=== PATIENT | female | born 1960 | race Caucasian/White ===

== ENCOUNTER 2023-04-03 12:48 | Inpatient (IN) | payer OTHER ==
[~2023-04-03 12:48] MED LIST: Heparin 10,000 UNITS/ 10 ML VIAL ONE
[2023-04-03 13:32] LABS: #Neutrophils 16.3 thou/uL (1.40-6.50); %Basophils 0.1 % (0.0-1.0); %Eosinophils 0.1 % (0.0-10.0); %Lymphocytes 5.7 % (21.0-51.0); %Monocytes 5.3 % (0.0-10.0); %Neutrophils 87.6 % (42.0-75.0); Hematocrit 31.5 % (36.0-47.0); Hemoglobin 8.1 g/dL (12.0-16.0); Mean Corpuscular HGB CONC 25.7 g/dL (32.0-36.0); Mean Corpuscular Volume 93.2 fl (78.0-98.0); Mean Platelet Volume 10.6 fL (7.4-10.4); Platelet Count 322 10x3/uL (130-400); RBC Distribution Width 22.8 % (11.5-14.5); Red Blood Cell (RBC) Count 3.38 mill/uL (4.20-5.40); White Blood Cell (WBC) Count 18.6 10x3/uL (4.8-10.8)
[2023-04-03 13:54] LABS: ALT (SGPT) 26 U/L (8-55); AST (SGOT) 31 U/L (5-34); Albumin 2.9 g/dL (3.5-5.0); Alkaline Phosphatase 226 U/L (40-110); BUN (Urea Nitrogen) 94 mg/dL (9.8-20.1); Bilirubin, Total 0.4 mg/dL (0.2-1.2); CK (CPK) 80 U/L (29-168); Calc. Creatinine Clearance 0 mL/min (70-130); Calcium 8.5 mg/dL (7.8-10.44); Chloride 94 mmol/L (98-107); Estimated GFR 8; Globulin 3.5 g/dL (2.4-3.5); Glucose 106 mg/dL (70-105); Protein, Total 6.4 g/dL (6.0-8.3); Sodium 131 mmol/L (136-145)
[2023-04-03 13:58] LABS: Anisocytosis MODERATE=16-30 cells HPF (0-5); Burr Cells MODERATE= 6-15 cells HPF (0-1); CellaVision Operator ID LAB.MJL; Hypochromia SLIGHT = 6-15 cells HPF (0-5); Ovalocytes SLIGHT = 2-5 cells HPF (0-1); Platelet Adequacy Comment Platelets Normal; Poikilocytosis SLIGHT = 6-15 cells HPF (0-5); Polychromasia MODERATE = 3-4 cells HPF (0-2); Troponin I 0.023 ng/mL (< 0.028)
[2023-04-03 14:02] LABS: Carbon Dioxide Less than 8 mmol/L (22-29)
[2023-04-03] MEDS ORDERED: Calcium Chloride 1 GM/10 ML Abboject SYRINGE ONE (14:09)
[2023-04-03] MEDS ORDERED: Sodium Bicarb 50 MEQ/50 ML VIAL ONE ×4 (14:09→18:22)
[2023-04-03] MEDS ORDERED: CALCIUM GLUC 1 GM/NS 50 ML BAG ONE (14:10)
[2023-04-03] MEDS ORDERED: Insulin Regular 300 UNITS/3 ML VIAL ONE (14:10)
[2023-04-03] MEDS ORDERED: Dextrose 50% Abboject 50 ML SYRINGE ONE (14:13)
[2023-04-03] MEDS ORDERED: Rocuronium Bromide 10 MG/ML (10ML VIAL) ONE ×3 (14:20→14:23)
[2023-04-03] MEDS ORDERED: EPINEPHrine 1 MG/10 ML Abboject SYRINGE ONE ×2 (14:24→14:25)
[2023-04-03] MEDS ORDERED: NOREPINEPHRINE 8 MG/250 ML-D5W 250 ML ONE (14:24)
[2023-04-03] MEDS ORDERED: Fentanyl CADD 100 ML IV SCH (14:30)
[2023-04-03 14:49] LABS: Analyzer IN Cardio ER; CO2 Tension 37.1 mmHg (35.0-45.0); Calcium, Ionized (arterial) 1.05 mmol/L (1.12-1.30); Carboxyhemoglobin (COHb) 0.3 gm% (0.0-3.0); Hematocrit-ABG 27 % (36.0-47.0); Hemoglobin (Hb) 9.3 g/dL (12.0-16.0); O2 Tension (PaO2), arterial 152.1 mmHg (> 80.0)
[2023-04-03 14:50] LABS: ALV-art Gradient 371.925 mmHg (0-20); Actual Bicarbonate (HCO3a) 6.8 mEq/L (22-28); Potassium - ABG Lab 6.44 mmol/L (3.70-5.30); Puncture Site LRA; pH, Arterial 6.884 (7.35-7.45)
[2023-04-03 14:55] LABS: Bilirubin Negative (Negative); Blood, Urine 1+ (Negative); CAUTI Indications for Culture Alt mental st,lethar; Clarity Extra Turbid (Clear); Glucose, Urine (Dipstick) 200 mg/dL (Negative); Ketone, Urine Negative (Negative); Leukocyte 75 Leu/uL (Negative); Nitrite Negative (Negative); Protein, Urine (Dipstick) 300 mg/dL (Neg-Trace); Squamous Epithelial Greater than 50 HPF (0-3); Urobilinogen Normal mg/dL (Less than 2)
[2023-04-03 15:04] LABS: Bacteria/HPF 2+ HPF (None Seen); WBC/HPF 0-3 HPF (0-3)
[2023-04-03 15:05] LABS: Urine Culture Reflex No No
[2023-04-03 15:15] LABS: Actual Bicarbonate (HCO3a) 7.2 mEq/L (22-28); Analyzer IN Cardio ER; Base Excess (BEa) -24.1 mEq/L (-2.0 to +3.0); CO2 Tension 35.4 mmHg (35.0-45.0); Calcium, Ionized (arterial) 1.11 mmol/L (1.12-1.30); Carboxyhemoglobin (COHb) 0.3 gm% (0.0-3.0); Hematocrit-ABG 28 % (36.0-47.0); Hemoglobin (Hb) 9.4 g/dL (12.0-16.0); O2 Tension (PaO2), arterial 88.1 mmHg (> 80.0); Potassium - ABG Lab 5.98 mmol/L (3.70-5.30); Puncture Site LRA; pH, Arterial 6.924 (7.35-7.45)
[2023-04-03] MEDS ORDERED: Albumin 25% 25 GM/100 ML BOT IVPB SCH ×2 (16:30→20:45)
[2023-04-03 16:43] LABS: HBSAB Concentration Less than 8.00 mIU/mL; HBSAg Index 0.27 S/CO (0-0.99); Hep B Core Total Ab Non-Reactive (NonReactive); Hep B Core Total Index 0.18 S/CO (0-0.79); Hep B Surf AB Non-Reactive (NonReactive); Hep B Surf Ag Non-Reactive S/CO (NonReactive); Hep C IgG Ab Non-Reactive S/CO (NonReactive); Hep C Index 0.22 S/CO (0-0.79)
[2023-04-03] MEDS ORDERED: Dextrose 50% Abboject 50 ML SYRINGE SLOW IVP PRN (16:54)
[2023-04-03] MEDS ORDERED: Glucagon 1 MG/ML KIT IM PRN (16:54)
[2023-04-03] MEDS ORDERED: Dextrose 5% in Water 1,000 ML IV PRN (16:54)
[2023-04-03 17:42] LABS: Hematocrit 30.3 % (36.0-47.0); Hemoglobin 7.9 g/dL (12.0-16.0)
[2023-04-03] MEDS ORDERED: Albumin 25% 25 GM/100 ML BOT IVPB PRN (17:44)
[2023-04-03] MEDS ORDERED: Sodium Bicarbonate 150 MEQ in Dextrose 5% in Water 1,000 ML IV SCH (18:00)
[2023-04-03 18:06] LABS: BUN (Urea Nitrogen) 90 mg/dL (9.8-20.1); Calc. Creatinine Clearance 0 mL/min (70-130); Calcium 8.3 mg/dL (7.8-10.44); Chloride 95 mmol/L (98-107); Estimated GFR 8; Glucose 135 mg/dL (70-105); Sodium 130 mmol/L (136-145)
[2023-04-03 18:19] LABS: Calcium, Ionized (venous) 1.06 mmol/L (1.16-1.32); Chloride (VBG) 94 mmol/L (98-106); Hematocrit-VBG 27 % (36.0-47.0); Hemoglobin (Hb) 9.1 g/dL (11.7-16.0); Sodium 131.5 mmol/L (133-146)
[2023-04-03 18:19] LABS: Carbon Dioxide Less than 8 mmol/L (22-29); Potassium 6.3 mmol/L (3.5-5.1)
[2023-04-03] MEDS ORDERED: Sodium Bicarb 50 MEQ/50 ML Abboject 8.4% SYRINGE IVP SCH (18:20)
[2023-04-03 18:23] LABS: HBSAB Concentration Less than 8.00 mIU/mL; HBSAg Index 0.22 S/CO (0-0.99); Hep B Core Total Ab Non-Reactive (NonReactive); Hep B Core Total Index 0.09 S/CO (0-0.79); Hep B Surf AB Non-Reactive (NonReactive); Hep B Surf Ag Non-Reactive S/CO (NonReactive); Hep C IgG Ab Non-Reactive S/CO (NonReactive); Hep C Index 0.19 S/CO (0-0.79)
[2023-04-03 18:27] LABS: Actual Bicarbonate (HCO3v) 9.9 mEq/L (22-28); Potassium (VBG) 6.16 mmol/L (3.70-5.30); pH (venous) 7.069 (7.32-7.43)
[2023-04-03] MEDS ORDERED: LOKELMA 10 GM PACKET PO SCH (18:45)
[2023-04-03] MEDS ORDERED: NOREPINEPHRINE 8 MG/250 ML-D5W 250 ML IVPB SCH (18:45)
[2023-04-03 18:50] LABS: Lactic Acid 12.1 mmol/L (0.5-2.2)
[2023-04-03] MEDS ORDERED: VANCOMYCIN 1.25 GM/250 ML BAG 1.25 GM in Premix Bag 1 BAG IVPB SCH (19:00)
[2023-04-03] MEDS ORDERED: Vancomycin Dialysis Sliding Scale (Wt > 99) FS SCH (19:00)
[2023-04-03] MEDS ORDERED: Sodium Bicarb 50 MEQ/50 ML VIAL IVP SCH (19:30)
[2023-04-03 20:16] LABS: Anion Gap 34 mmol/L (10-20); BUN (Urea Nitrogen) 99 mg/dL (9.8-20.1); Calc. Creatinine Clearance 21 mL/min (70-130); Calcium 8.4 mg/dL (7.8-10.44); Carbon Dioxide 13 mmol/L (22-29); Chloride 93 mmol/L (98-107); Estimated GFR 8; Glucose 172 mg/dL (70-105); Magnesium 2.1 mg/dL (1.6-2.6); Sodium 134 mmol/L (136-145)
[2023-04-03] MEDS: Cefepime 1 GM in Sodium Chloride 0.9% 100 ML IVPB SCH (20:42)
[2023-04-03] MEDS: Heparin 5,000 UNITS/ML VIAL SC SCH (20:51)
[2023-04-03 21:05] LABS: Potassium 6.2 mmol/L (3.5-5.1)
[2023-04-03 21:22] LABS: Hematocrit 28.5 % (36.0-47.0); Hemoglobin 7.8 g/dL (12.0-16.0)
[2023-04-03] MEDS ORDERED: VANCOMYCIN 2 GRAM/500 ML BAG 2 GM in Premix Bag 1 BAG IVPB SCH (22:00)
[2023-04-03 23:18] LABS: Anion Gap 30 mmol/L (10-20); BUN (Urea Nitrogen) 66 mg/dL (9.8-20.1); Calc. Creatinine Clearance 29 mL/min (70-130); Calcium 9.4 mg/dL (7.8-10.44); Carbon Dioxide 16 mmol/L (22-29); Chloride 93 mmol/L (98-107); Estimated GFR 13; Glucose 164 mg/dL (70-105); Sodium 134 mmol/L (136-145)
[2023-04-03 23:35] LABS: Analyzer IN Cardio OR; Base Excess -8.8 mEq/L (-2.0 to +3.0); Calcium, Ionized (venous) 1.11 mmol/L (1.16-1.32); Chloride (VBG) 93 mmol/L (98-106); Hematocrit-VBG 26 % (36.0-47.0); Hemoglobin (Hb) 8.8 g/dL (11.7-16.0); Potassium (VBG) 4.68 mmol/L (3.70-5.30); Sodium 132.7 mmol/L (133-146)
[2023-04-04 00:07] LABS: Lactic Acid 8.7 mmol/L (0.5-2.2)
[2023-04-04] MEDS ORDERED: NOREPINEPHRINE 8 MG/250 ML-D5W 250 ML IVPB SCH (00:15)
[2023-04-04] MEDS: metroNIDAZOLE 500 MG in Premix Bag 1 BAG IVPB SCH ×4 (00:48→21:49)
[2023-04-04] MEDS: Norepinephrine 16 MG in Dextrose 5% in Water 234 ML IVPB PRN ×3 (00:50→23:27)
[2023-04-04 04:00] LABS: #Monocytes 3.1 thou/uL (0.11-0.59); #Neutrophils 17.3 thou/uL (1.40-6.50); %Basophils 0.1 % (0.0-1.0); %Lymphocytes 7.1 % (21.0-51.0); %Monocytes 13.8 % (0.0-10.0); %Neutrophils 78.2 % (42.0-75.0); Hemoglobin 7.4 g/dL (12.0-16.0); Mean Corpuscular HGB CONC 27.4 g/dL (32.0-36.0); Mean Corpuscular Hemoglobin 23.6 pg (27.0-31.0); Platelet Count 262 10x3/uL (130-400); RBC Distribution Width 23.1 % (11.5-14.5); Red Blood Cell (RBC) Count 3.14 mill/uL (4.20-5.40); White Blood Cell (WBC) Count 22.2 10x3/uL (4.8-10.8)
[2023-04-04] MEDS ORDERED: Hydrocortisone Sod Succ/PF 250 mg/2 ml Vial SLOW IVP SCH (04:00)
[2023-04-04] MEDS: Hydrocortisone Sod Succ/PF 100 mg/2 ml Vial IVP SCH ×4 (04:14→22:39)
[2023-04-04 04:22] LABS: Phosphorus 6.5 mg/dL (2.3-4.7)
[2023-04-04 04:23] LABS: Lactic Acid 8.7 mmol/L (0.5-2.2)
[2023-04-04 04:25] LABS: ALT (SGPT) 142 U/L (8-55); AST (SGOT) 286 U/L (5-34); Albumin 3.6 g/dL (3.5-5.0); Alkaline Phosphatase 158 U/L (40-110); Anion Gap 33 mmol/L (10-20); BUN (Urea Nitrogen) 62 mg/dL (9.8-20.1); Bilirubin, Total 0.6 mg/dL (0.2-1.2); Calc. Creatinine Clearance 29 mL/min (70-130); Calcium 8.8 mg/dL (7.8-10.44); Carbon Dioxide 12 mmol/L (22-29); Chloride 93 mmol/L (98-107); Estimated GFR 13; Globulin 2.7 g/dL (2.4-3.5); Glucose 173 mg/dL (70-105); Protein, Total 6.3 g/dL (6.0-8.3); Sodium 133 mmol/L (136-145)
[2023-04-04 04:30] LABS: Creatinine, Urine 24.89 mg/dL (47-110)
[2023-04-04] MEDS ORDERED: Sodium Bicarbonate 150 MEQ in Dextrose 5% in Water 1,000 ML IV SCH ×2 (05:00→16:15)
[2023-04-04 06:53] LABS: Base Excess (BEa) -10.5 mEq/L (-2.0 to +3.0); Calcium, Ionized (arterial) 1.05 mmol/L (1.12-1.30); Carboxyhemoglobin (COHb) 0.9 gm% (0.0-3.0); Hematocrit-ABG 25 % (36.0-47.0); Hemoglobin (Hb) 8.6 g/dL (12.0-16.0); O2 Tension (PaO2), arterial 78.7 mmHg (> 80.0); Potassium - ABG Lab 5.15 mmol/L (3.70-5.30); pH, Arterial 7.309 (7.35-7.45)
[2023-04-04 06:55] LABS: Actual Bicarbonate (HCO3a) 14.7 mEq/L (22-28); Puncture Site RRA
[2023-04-04] MEDS ORDERED: Ventilator Sedation Protocol 1 EACH FS SCH (08:45)
[2023-04-04] MEDS ORDERED: Pantoprazole 40 MG VIAL IVP SCH (09:00)
[2023-04-04] MEDS: Heparin 5,000 UNITS/ML VIAL SC SCH ×3 (09:13→21:49)
[2023-04-04] MEDS: HumaLOG 300 UNITS/3 ML VIAL SC PRN ×3 (09:14→22:10)
[2023-04-04 09:19] LABS: Anion Gap 32 mmol/L (10-20); BUN (Urea Nitrogen) 65 mg/dL (9.8-20.1); Calc. Creatinine Clearance 28 mL/min (70-130); Calcium 8.6 mg/dL (7.8-10.44); Carbon Dioxide 12 mmol/L (22-29); Chloride 92 mmol/L (98-107); Estimated GFR 12; Glucose 215 mg/dL (70-105); Potassium 5.2 mmol/L (3.5-5.1); Sodium 131 mmol/L (136-145)
[2023-04-04] MEDS: Vasopressin 20 UNITS in Sodium Chloride 0.9% 50 ML IV SCH ×2 (09:23→15:52)
[2023-04-04 09:28] LABS: Vancomycin, Random 30.6 ug/mL (See Comment)
[2023-04-04] MEDS ORDERED: Fentanyl CADD 100 ML IV SCH (09:45)
[2023-04-04] MEDS ORDERED: Propofol BOLUS 1,000 MG/100 ML VIAL IV PRN (09:45)
[2023-04-04] MEDS ORDERED: Propofol 1,000 MG/100 ML VIAL IV PRN (09:45)
[2023-04-04] MEDS: Albumin 25% 25 GM/100 ML BOT IVPB SCH (09:45)
[2023-04-04] MEDS ORDERED: Morphine 2 MG/ML VIAL SLOW IVP PRN (09:45)
[2023-04-04] MEDS ORDERED: Fentanyl BOLUS 250 ML IVPB PRN (09:45)
[2023-04-04] MEDS ORDERED: Lorazepam 2 MG/ML VIAL SLOW IVP PRN (09:45)
[2023-04-04] MEDS: Pantoprazole 40 MG VIAL IVP SCH ×2 (09:52→21:48)
[2023-04-04] MEDS ORDERED: Heparin 10,000 UNITS/ 10 ML VIAL ONE (11:54)
[2023-04-04] MEDS: Cefepime 1 GM in Sodium Chloride 0.9% 100 ML IVPB SCH (21:47)
[2023-04-05] MEDS: Vasopressin 20 UNITS in Sodium Chloride 0.9% 50 ML IV SCH ×2 (01:20→10:42)
[2023-04-05 04:15] LABS: #Monocytes 2.8 thou/uL (0.11-0.59); #Neutrophils 16.4 thou/uL (1.40-6.50); %Basophils 0.1 % (0.0-1.0); %Lymphocytes 6.8 % (21.0-51.0); %Monocytes 13.5 % (0.0-10.0); %Neutrophils 78.7 % (42.0-75.0); Hematocrit 25.3 % (36.0-47.0); Hemoglobin 7.4 g/dL (12.0-16.0); Mean Corpuscular HGB CONC 29.2 g/dL (32.0-36.0); Mean Corpuscular Hemoglobin 24.2 pg (27.0-31.0); Mean Corpuscular Volume 82.7 fl (78.0-98.0); Platelet Count 146 10x3/uL (130-400); RBC Distribution Width 23.5 % (11.5-14.5); Red Blood Cell (RBC) Count 3.06 mill/uL (4.20-5.40); White Blood Cell (WBC) Count 20.8 10x3/uL (4.8-10.8)
[2023-04-05] MEDS: Hydrocortisone Sod Succ/PF 100 mg/2 ml Vial IVP SCH ×4 (04:29→21:22)
[2023-04-05 04:42] LABS: ALT (SGPT) 199 U/L (8-55); AST (SGOT) 307 U/L (5-34); Albumin 3.6 g/dL (3.5-5.0); Alkaline Phosphatase 148 U/L (40-110); Anion Gap 34 mmol/L (10-20); BUN (Urea Nitrogen) 51 mg/dL (9.8-20.1); Bilirubin, Total 0.9 mg/dL (0.2-1.2); Calc. Creatinine Clearance 33 mL/min (70-130); Calcium 8.4 mg/dL (7.8-10.44); Carbon Dioxide 15 mmol/L (22-29); Chloride 90 mmol/L (98-107); Estimated GFR 15; Globulin 2.4 g/dL (2.4-3.5); Glucose 254 mg/dL (70-105); Potassium 4.3 mmol/L (3.5-5.1); Sodium 135 mmol/L (136-145)
[2023-04-05] MEDS: metroNIDAZOLE 500 MG in Premix Bag 1 BAG IVPB SCH ×3 (06:21→21:22)
[2023-04-05] MEDS: HumaLOG 300 UNITS/3 ML VIAL SC PRN ×2 (06:29→21:29)
[2023-04-05 07:24] LABS: Vancomycin, Random 18.7 ug/mL (See Comment)
[2023-04-05 08:01] LABS: Base Excess (BEa) -9.9 mEq/L (-2.0 to +3.0); CO2 Tension 25.3 mmHg (35.0-45.0); Calcium, Ionized (arterial) 1.02 mmol/L (1.12-1.30); Carboxyhemoglobin (COHb) 0.8 gm% (0.0-3.0); Hematocrit-ABG 25 % (36.0-47.0); Hemoglobin (Hb) 8.6 g/dL (12.0-16.0); O2 Tension (PaO2), arterial 92.9 mmHg (> 80.0); Potassium - ABG Lab 4.25 mmol/L (3.70-5.30); pH, Arterial 7.367 (7.35-7.45)
[2023-04-05 08:03] LABS: ALV-art Gradient 267.625 mmHg (0-20); Actual Bicarbonate (HCO3a) 14.2 mEq/L (22-28); Puncture Site RRA
[2023-04-05] MEDS ORDERED: Heparin 10,000 UNITS/ 10 ML VIAL ONE (09:29)
[2023-04-05] MEDS ORDERED: Insulin Glargine 30 UNITS/0.3 ML VIAL SC SCH (09:45)
[2023-04-05] MEDS: Pantoprazole 40 MG VIAL IVP SCH ×2 (10:29→20:12)
[2023-04-05] MEDS: Insulin Glargine 30 UNITS/0.3 ML VIAL SC SCH (10:35)
[2023-04-05] MEDS ORDERED: Albumin 25% 25 GM/100 ML BOT IVPB PRN (10:52)
[2023-04-05 11:01] LABS: Platelet Count 144 10x3/uL (130-400)
[2023-04-05 11:17] LABS: INR-International Normal Ratio 2.7; Prothrombin Time 30.2 sec (12.0-14.7)
[2023-04-05 11:18] LABS: PTT 38.6 sec (22.9-36.1)
[2023-04-05 11:23] LABS: Fibrinogen 151 mg/dL (253-463)
[2023-04-05 11:30] LABS: D-Dimer Test 8.53 *mcg/mL (0.27-0.43)
[2023-04-05] MEDS: Norepinephrine 16 MG in Dextrose 5% in Water 234 ML IVPB PRN (11:39)
[2023-04-05] MEDS: Heparin 5,000 UNITS/ML VIAL SC SCH (11:45)
[2023-04-05] MEDS: Albumin 25% 25 GM/100 ML BOT IVPB SCH (13:11)
[2023-04-05] MEDS ORDERED: Vancomycin 1 GM in Premix Bag 1 BAG IVPB SCH (17:00)
[2023-04-05] MEDS: Cefepime 1 GM in Sodium Chloride 0.9% 100 ML IVPB SCH (20:11)
[2023-04-06] MEDS: Hydrocortisone Sod Succ/PF 100 mg/2 ml Vial IVP SCH ×4 (04:55→21:46)
[2023-04-06] MEDS: metroNIDAZOLE 500 MG in Premix Bag 1 BAG IVPB SCH ×4 (06:05→21:14)
[2023-04-06 06:31] LABS: #Monocytes 2.3 thou/uL (0.11-0.59); #Neutrophils 14.4 thou/uL (1.40-6.50); %Basophils 0.1 % (0.0-1.0); %Eosinophils 0.1 % (0.0-10.0); %Lymphocytes 3.9 % (21.0-51.0); %Monocytes 12.9 % (0.0-10.0); %Neutrophils 81.7 % (42.0-75.0); Hematocrit 25.6 % (36.0-47.0); Hemoglobin 7.2 g/dL (12.0-16.0); Mean Corpuscular HGB CONC 28.1 g/dL (32.0-36.0); Mean Corpuscular Hemoglobin 24.3 pg (27.0-31.0); Mean Corpuscular Volume 86.5 fl (78.0-98.0); RBC Distribution Width 23.9 % (11.5-14.5); Red Blood Cell (RBC) Count 2.96 mill/uL (4.20-5.40); White Blood Cell (WBC) Count 17.6 10x3/uL (4.8-10.8)
[2023-04-06 06:33] LABS: Platelet Count 74 10x3/uL (130-400)
[2023-04-06 06:51] LABS: ALT (SGPT) 261 U/L (8-55); AST (SGOT) 333 U/L (5-34); Albumin 4.1 g/dL (3.5-5.0); Alkaline Phosphatase 142 U/L (40-110); Anion Gap 25 mmol/L (10-20); BUN (Urea Nitrogen) 46 mg/dL (9.8-20.1); Bilirubin, Total 1.5 mg/dL (0.2-1.2); Calc. Creatinine Clearance 33 mL/min (70-130); Calcium 8.8 mg/dL (7.8-10.44); Carbon Dioxide 24 mmol/L (22-29); Chloride 90 mmol/L (98-107); Estimated GFR 15; Globulin 2.5 g/dL (2.4-3.5); Glucose 225 mg/dL (70-105); Iron 63 ug/dL (50-170); Iron Binding Capacity, Total 183 mcg/dL (265-497); Potassium 4.2 mmol/L (3.5-5.1); Protein, Total 6.6 g/dL (6.0-8.3); Sodium 135 mmol/L (136-145)
[2023-04-06 06:56] LABS: Anisocytosis MODERATE=16-30 cells HPF (0-5); Burr Cells SLIGHT = 2-5 cells HPF (0-1); CellaVision Operator ID lab.sh2; Hypochromia MODERATE=16-30 cells HPF (0-5); Macrocytosis SLIGHT = 6-15 cells HPF (0-5); Ovalocytes SLIGHT = 2-5 cells HPF (0-1); Platelet Adequacy Comment Platelets Decreased; Polychromasia MODERATE = 3-4 cells HPF (0-2)
[2023-04-06 07:13] LABS: Vancomycin, Random 27.3 ug/mL (See Comment)
[2023-04-06] MEDS ORDERED: DC Sedation Protocol FS ONE (08:37)
[2023-04-06 08:57] LABS: Base Excess -4.8 mEq/L (-2.0 to +3.0); Calcium, Ionized (venous) 1.05 mmol/L (1.16-1.32); Chloride (VBG) 90 mmol/L (98-106); Hematocrit-VBG 25 % (36.0-47.0); Hemoglobin (Hb) 8.4 g/dL (11.7-16.0); Potassium (VBG) 4.18 mmol/L (3.70-5.30); Sodium 133.8 mmol/L (133-146); pH (venous) 7.264 (7.32-7.43)
[2023-04-06] MEDS: Albumin 25% 25 GM/100 ML BOT IVPB SCH ×3 (09:04→21:14)
[2023-04-06] MEDS: Insulin Glargine 30 UNITS/0.3 ML VIAL SC SCH ×2 (09:06→09:07)
[2023-04-06] MEDS: Pantoprazole 40 MG VIAL IVP SCH ×2 (09:07→20:36)
[2023-04-06] MEDS ORDERED: EPOETIN ALFA-EPBX (ESRD) 10,000 UNITS/ML VIAL SC SCH (09:15)
[2023-04-06] MEDS ORDERED: DC Sedation Protocol FS SCH (09:26)
[2023-04-06] MEDS ORDERED: Heparin 10,000 UNITS/ 10 ML VIAL ONE (09:28)
[2023-04-06] MEDS ORDERED: Insulin Glargine 30 UNITS/0.3 ML VIAL SC SCH (09:30)
[2023-04-06] MEDS: HumaLOG 300 UNITS/3 ML VIAL SC PRN ×3 (09:36→19:18)
[2023-04-06 10:11] LABS: Lactic Acid 4.8 mmol/L (0.5-2.2)
[2023-04-06 10:54] LABS: Free T4 (Free Thyroxine) 0.89 ng/dL (0.70-1.48); Thyroid Stimulating Hormone 0.9564 uIU/mL (0.35-4.94)
[2023-04-06] MEDS ORDERED: Epoetin (ESRD) 10,000 UNITS/ML VIAL SC SCH (11:30)
[2023-04-06 12:45] LABS: Hemoglobin 6.9 g/dL (12.0-16.0)
[2023-04-06 12:46] LABS: Platelet Count 72 10x3/uL (130-400)
[2023-04-06 12:50] LABS: Platelet Count 72 10x3/uL (130-400)
[2023-04-06 12:57] LABS: INR-International Normal Ratio 2.4; Prothrombin Time 27.3 sec (12.0-14.7)
[2023-04-06 12:58] LABS: PTT 42.6 sec (22.9-36.1)
[2023-04-06 13:03] LABS: Fibrinogen 143 mg/dL (253-463)
[2023-04-06 13:07] LABS: D-Dimer Test 7.68 *mcg/mL (0.27-0.43)
[2023-04-06 13:18] LABS: Troponin I 2.121 ng/mL (< 0.028)
[2023-04-06 20:19] VITALS: BP 113/73
[2023-04-06] MEDS: Norepinephrine 16 MG in Dextrose 5% in Water 234 ML IVPB PRN (20:28)
[2023-04-06] MEDS: Cefepime 1 GM in Sodium Chloride 0.9% 100 ML IVPB SCH (20:36)
[2023-04-06] MEDS: DOBUTamine 500 mg/250 ml 500 MG in Premix Bag 1 BAG IVPB SCH (20:38)
[2023-04-06] MEDS ORDERED: Calcium Gluc 4.6 MEQ/10 ML (100 MG/ML) SLOW IVP SCH (21:15)
[2023-04-06 22:11] LABS: Hematocrit 29.2 % (36.0-47.0); Hemoglobin 8.6 g/dL (12.0-16.0); Mean Corpuscular HGB CONC 29.5 g/dL (32.0-36.0); Mean Corpuscular Hemoglobin 25.1 pg (27.0-31.0); Mean Corpuscular Volume 85.1 fl (78.0-98.0); RBC Distribution Width 21.1 % (11.5-14.5); Red Blood Cell (RBC) Count 3.43 mill/uL (4.20-5.40); White Blood Cell (WBC) Count 12.7 10x3/uL (4.8-10.8)
[2023-04-06 22:13] LABS: Platelet Count 48 10x3/uL (130-400)
[2023-04-06 22:14] LABS: Platelet Count 48 10x3/uL (130-400)
[2023-04-06 22:21] LABS: INR-International Normal Ratio 2.3; Prothrombin Time 26.1 sec (12.0-14.7)
[2023-04-06 22:22] LABS: Fibrinogen 161 mg/dL (253-463); PTT 30.1 sec (22.9-36.1)
[2023-04-06 22:31] LABS: D-Dimer Test 6.92 *mcg/mL (0.27-0.43)
[2023-04-07 02:24] LABS: ALT (SGPT) 290 U/L (8-55); AST (SGOT) 497 U/L (5-34); Albumin 4.4 g/dL (3.5-5.0); Alkaline Phosphatase 122 U/L (40-110); Anion Gap 26 mmol/L (10-20); BUN (Urea Nitrogen) 52 mg/dL (9.8-20.1); Bilirubin, Total 2.2 mg/dL (0.2-1.2); Calc. Creatinine Clearance 30 mL/min (70-130); Calcium 9.4 mg/dL (7.8-10.44); Carbon Dioxide 24 mmol/L (22-29); Chloride 90 mmol/L (98-107); Estimated GFR 14; Globulin 2.4 g/dL (2.4-3.5); Glucose 202 mg/dL (70-105); Potassium 3.9 mmol/L (3.5-5.1); Protein, Total 6.8 g/dL (6.0-8.3); Sodium 136 mmol/L (136-145)
[2023-04-07] MEDS ORDERED: Amiodarone 150 MG, Admixture Fee 1 EACH in Dextrose 5% in Water 100 ML IVPB SCH (02:30)
[2023-04-07] MEDS: Amiodarone 450 MG, Admixture Fee 1 EACH in Dextrose 5% in Water 250 ML IVPB SCH ×2 (03:47→11:02)
[2023-04-07] MEDS: Albumin 25% 25 GM/100 ML BOT IVPB SCH (03:55)
[2023-04-07 05:37] LABS: #Neutrophils 8.2 thou/uL (1.40-6.50); %Lymphocytes 4.1 % (21.0-51.0); %Monocytes 10.6 % (0.0-10.0); %Neutrophils 84.3 % (42.0-75.0); Hematocrit 27.5 % (36.0-47.0); Hemoglobin 8.2 g/dL (12.0-16.0); Mean Corpuscular HGB CONC 29.8 g/dL (32.0-36.0); Mean Corpuscular Volume 83.8 fl (78.0-98.0); RBC Distribution Width 21.3 % (11.5-14.5); Red Blood Cell (RBC) Count 3.28 mill/uL (4.20-5.40); White Blood Cell (WBC) Count 9.8 10x3/uL (4.8-10.8)
[2023-04-07 05:49] LABS: Platelet Count 41 10x3/uL (130-400)
[2023-04-07] MEDS: Hydrocortisone Sod Succ/PF 100 mg/2 ml Vial IVP SCH ×4 (05:50→21:45)
[2023-04-07] MEDS: metroNIDAZOLE 500 MG in Premix Bag 1 BAG IVPB SCH ×3 (05:50→21:36)
[2023-04-07] MEDS: HumaLOG 300 UNITS/3 ML VIAL SC PRN ×2 (05:51→11:05)
[2023-04-07 08:12] LABS: Actual Bicarbonate (HCO3v) 22.1 mEq/L (22-28); Base Excess -1.2 mEq/L (-2.0 to +3.0); Calcium, Ionized (venous) 0.95 mmol/L (1.16-1.32); Chloride (VBG) 91 mmol/L (98-106); Hematocrit-VBG 28 % (36.0-47.0); Hemoglobin (Hb) 9.6 g/dL (11.7-16.0); Potassium (VBG) 3.74 mmol/L (3.70-5.30); pH (venous) 7.461 (7.32-7.43)
[2023-04-07 08:35] LABS: Vancomycin, Random 23.3 ug/mL (See Comment)
[2023-04-07] MEDS ORDERED: Insulin Glargine 30 UNITS/0.3 ML VIAL SC SCH (09:00)
[2023-04-07] MEDS: Pantoprazole 40 MG VIAL IVP SCH ×2 (09:03→20:44)
[2023-04-07] MEDS: DOBUTamine 500 mg/250 ml 500 MG in Premix Bag 1 BAG IVPB SCH (11:00)
[2023-04-07 11:12] VITALS: BMI 42.9
[2023-04-07] MEDS ORDERED: Calcium Gluconate 9.2 MEQ in Sodium Chloride 0.9% 100 ML IVPB SCH (18:00)
[2023-04-07] MEDS: Cefepime 1 GM in Sodium Chloride 0.9% 100 ML IVPB SCH (20:43)
[2023-04-07] MEDS ORDERED: NOREPINEPHRINE 8 MG/250 ML-D5W 250 ML ONE (21:57)
[2023-04-08] MEDS: DOBUTamine 500 mg/250 ml 500 MG in Premix Bag 1 BAG IVPB SCH ×3 (01:59→18:50)
[2023-04-08] MEDS: Amiodarone 450 MG, Admixture Fee 1 EACH in Dextrose 5% in Water 250 ML IVPB SCH ×2 (02:00→18:46)
[2023-04-08] MEDS: Norepinephrine 16 MG in Dextrose 5% in Water 234 ML IVPB PRN (02:00)
[2023-04-08] MEDS: Hydrocortisone Sod Succ/PF 100 mg/2 ml Vial IVP SCH ×4 (03:57→23:18)
[2023-04-08 04:30] LABS: ALT (SGPT) 244 U/L (8-55); AST (SGOT) 290 U/L (5-34); Albumin 3.8 g/dL (3.5-5.0); Alkaline Phosphatase 119 U/L (40-110); Anion Gap 19 mmol/L (10-20); BUN (Urea Nitrogen) 33 mg/dL (9.8-20.1); Bilirubin, Total 2.4 mg/dL (0.2-1.2); Calc. Creatinine Clearance 45 mL/min (70-130); Calcium 9.3 mg/dL (7.8-10.44); Carbon Dioxide 28 mmol/L (22-29); Chloride 92 mmol/L (98-107); Estimated GFR 22; Globulin 2.3 g/dL (2.4-3.5); Glucose 219 mg/dL (70-105); Magnesium 1.8 mg/dL (1.6-2.6); Potassium 3.4 mmol/L (3.5-5.1); Protein, Total 6.1 g/dL (6.0-8.3); Sodium 136 mmol/L (136-145)
[2023-04-08] MEDS ORDERED: Magnesium 2 GM/50 ML(in water) 2 GM in Premix Bag 1 BAG IVPB SCH (06:00)
[2023-04-08] MEDS: metroNIDAZOLE 500 MG in Premix Bag 1 BAG IVPB SCH ×3 (06:00→21:56)
[2023-04-08] MEDS ORDERED: Potassium Chloride 20 MEQ in Premix Bag 1 BAG IVPB SCH (06:00)
[2023-04-08] MEDS: HumaLOG 300 UNITS/3 ML VIAL SC PRN ×3 (07:32→16:38)
[2023-04-08 08:33] LABS: #Neutrophils 9.5 thou/uL (1.40-6.50); %Basophils 0.1 % (0.0-1.0); %Lymphocytes 3.4 % (21.0-51.0); %Monocytes 9.2 % (0.0-10.0); %Neutrophils 86.3 % (42.0-75.0); Hematocrit 28.6 % (36.0-47.0); Hemoglobin 8.6 g/dL (12.0-16.0); Mean Corpuscular HGB CONC 30.1 g/dL (32.0-36.0); Mean Corpuscular Volume 83.1 fl (78.0-98.0); RBC Distribution Width 21.6 % (11.5-14.5); Red Blood Cell (RBC) Count 3.44 mill/uL (4.20-5.40)
[2023-04-08 08:37] LABS: Platelet Count 42 10x3/uL (130-400)
[2023-04-08] MEDS: Pantoprazole 40 MG VIAL IVP SCH ×2 (09:54→21:56)
[2023-04-08] MEDS: Insulin Glargine 30 UNITS/0.3 ML VIAL SC SCH (09:54)
[2023-04-08 10:19] LABS: Prothrombin Time 23.9 sec (12.0-14.7)
[2023-04-08 10:20] LABS: PTT 35.6 sec (22.9-36.1)
[2023-04-08 10:51] LABS: Troponin I 6.595 ng/mL (< 0.028)
[2023-04-08] MEDS ORDERED: Albumin 25% 25 GM/100 ML BOT IVPB PRN (11:25)
[2023-04-08 16:19] LABS: Troponin I 6.268 ng/mL (< 0.028)
[2023-04-08] MEDS: Cefepime 1 GM in Sodium Chloride 0.9% 100 ML IVPB SCH (21:55)
[2023-04-08] MEDS: Vasopressin 20 UNITS in Sodium Chloride 0.9% 50 ML IV SCH (23:18)
[2023-04-09 04:38] LABS: #Monocytes 1.1 thou/uL (0.11-0.59); #Neutrophils 9.7 thou/uL (1.40-6.50); %Basophils 0.1 % (0.0-1.0); %Lymphocytes 2.8 % (21.0-51.0); %Monocytes 10.1 % (0.0-10.0); %Neutrophils 86.5 % (42.0-75.0); Hematocrit 27.6 % (36.0-47.0); Hemoglobin 8.6 g/dL (12.0-16.0); Mean Corpuscular HGB CONC 31.2 g/dL (32.0-36.0); Mean Corpuscular Hemoglobin 25.5 pg (27.0-31.0); Mean Corpuscular Volume 81.9 fl (78.0-98.0); Red Blood Cell (RBC) Count 3.37 mill/uL (4.20-5.40); White Blood Cell (WBC) Count 11.3 10x3/uL (4.8-10.8)
[2023-04-09 04:39] LABS: Platelet Count 48 10x3/uL (130-400)
[2023-04-09 04:53] LABS: ALT (SGPT) 245 U/L (8-55); AST (SGOT) 296 U/L (5-34); Albumin 3.9 g/dL (3.5-5.0); Alkaline Phosphatase 119 U/L (40-110); Anion Gap 21 mmol/L (10-20); BUN (Urea Nitrogen) 46 mg/dL (9.8-20.1); Bilirubin, Total 2.1 mg/dL (0.2-1.2); Calc. Creatinine Clearance 36 mL/min (70-130); Calcium 9.3 mg/dL (7.8-10.44); Carbon Dioxide 26 mmol/L (22-29); Chloride 91 mmol/L (98-107); Estimated GFR 18; Globulin 2.2 g/dL (2.4-3.5); Glucose 248 mg/dL (70-105); Magnesium 2.2 mg/dL (1.6-2.6); Potassium 3.5 mmol/L (3.5-5.1); Protein, Total 6.1 g/dL (6.0-8.3); Sodium 134 mmol/L (136-145)
[2023-04-09] MEDS: Hydrocortisone Sod Succ/PF 100 mg/2 ml Vial IVP SCH (05:08)
[2023-04-09] MEDS: metroNIDAZOLE 500 MG in Premix Bag 1 BAG IVPB SCH (05:08)
[2023-04-09] MEDS: HumaLOG 300 UNITS/3 ML VIAL SC PRN ×2 (05:18→12:14)
[2023-04-09] MEDS: Vasopressin 20 UNITS in Sodium Chloride 0.9% 50 ML IV SCH ×2 (05:22→14:19)
[2023-04-09] MEDS ORDERED: Potassium Chloride 40 MEQ in Premix Bag 1 BAG IVPB SCH (08:00)
[2023-04-09] MEDS: Pantoprazole 40 MG VIAL IVP SCH (08:36)
[2023-04-09] MEDS: Insulin Glargine 30 UNITS/0.3 ML VIAL SC SCH (08:36)
[2023-04-09] MEDS: DOBUTamine 500 mg/250 ml 500 MG in Premix Bag 1 BAG IVPB SCH (08:40)
[2023-04-09 12:24] VITALS: TEMP 98.8
[2023-04-09] MEDS: Amiodarone 450 MG, Admixture Fee 1 EACH in Dextrose 5% in Water 250 ML IVPB SCH (14:02)
[2023-04-09] MEDS ORDERED: Hydrocortisone 10 mg Tablet PO SCH (21:00)
[2023-04-10] MEDS ORDERED: Insulin Glargine 30 UNITS/0.3 ML VIAL SC SCH (09:00)
[2023-04-10 16:13] LABS: A/G Ratio 1.6 (0.7-1.7); Albumin 3.7 g/dL (2.9-4.4); Alpha 1 0.2 g/dL (0.0-0.4); Alpha 2 0.5 g/dL (0.4-1.0); Beta 0.6 g/dL (0.7-1.3); Globulin, Total 2.3 g/dL (2.2-3.9); M-Spike Not Observed g/dL (Not Observed)
== END 2023-04-09 15:17 | disposition short-term general hospital (02) | DRG 871 ==
LOC: ERS 12:48 → CCU 14:38
PROVIDERS: ADMIT Emergency Medicine; ATTEND Emergency Medicine
PROC: 02HV33Z Insertion of Infusion Device into Superior Vena Cava, Percutaneous Approach (ICD-10-PCS; principal; 2023-04-03)
PROC: 3E043XZ Introduction of Vasopressor into Central Vein, Percutaneous Approach (ICD-10-PCS; 2023-04-03)
PROC: 3E04329 Introduction of Other Anti-infective into Central Vein, Percutaneous Approach (ICD-10-PCS; 2023-04-03)
PROC: 0DH67UZ Insertion of Feeding Device into Stomach, Via Natural or Artificial Opening (ICD-10-PCS; 2023-04-03)
PROC: 3E0G76Z Introduction of Nutritional Substance into Upper GI, Via Natural or Artificial Opening (ICD-10-PCS; 2023-04-03)
PROC: 0BH17EZ Insertion of Endotracheal Airway into Trachea, Via Natural or Artificial Opening (ICD-10-PCS; 2023-04-03)
PROC: B548ZZA Ultrasonography of Superior Vena Cava, Guidance (ICD-10-PCS; 2023-04-03)
PROC: 4A133R1 Monitoring of Arterial Saturation, Peripheral, Percutaneous Approach (ICD-10-PCS; 2023-04-03)
PROC: 5A1945Z Respiratory Ventilation, 24-96 Consecutive Hours (ICD-10-PCS; 2023-04-03)
PROC: 5A1D70Z Performance of Urinary Filtration, Intermittent, Less than 6 Hours Per Day (ICD-10-PCS; 2023-04-03)
PROC: 30233N1 Transfusion of Nonautologous Red Blood Cells into Peripheral Vein, Percutaneous Approach (ICD-10-PCS; 2023-04-06)
PROC: 30233K1 Transfusion of Nonautologous Frozen Plasma into Peripheral Vein, Percutaneous Approach (ICD-10-PCS; 2023-04-06)
PROC: 5A09457 Assistance with Respiratory Ventilation, 24-96 Consecutive Hours, Continuous Positive Airway Pressure (ICD-10-PCS; 2023-04-06)
PROC: 5A0945A Assistance with Respiratory Ventilation, 24-96 Consecutive Hours, High Flow/Velocity Cannula (ICD-10-PCS; 2023-04-08)
DX: A41.9 Sepsis, unspecified organism (principal); D65 Disseminated intravascular coagulation [defibrination syndrome]; G93.41 Metabolic encephalopathy; R65.21 Severe sepsis with septic shock; J18.9 Pneumonia, unspecified organism; J96.01 Acute respiratory failure with hypoxia; N18.6 End stage renal disease; K72.00 Acute and subacute hepatic failure without coma; I50.33 Acute on chronic diastolic (congestive) heart failure; N17.0 Acute kidney failure with tubular necrosis; I44.2 Atrioventricular block, complete; E87.20 Acidosis, unspecified; I13.2 Hypertensive heart and chronic kidney disease with heart failure and with stage 5 chronic kidney disease, or end stage renal disease; Z68.41 Body mass index [BMI] 40.0-44.9, adult; N39.0 Urinary tract infection, site not specified; E87.1 Hypo-osmolality and hyponatremia; R18.8 Other ascites; I48.92 Unspecified atrial flutter; D63.1 Anemia in chronic kidney disease; E83.39 Other disorders of phosphorus metabolism; I87.8 Other specified disorders of veins; E83.51 Hypocalcemia; K80.20 Calculus of gallbladder without cholecystitis without obstruction; D64.9 Anemia, unspecified; I27.20 Pulmonary hypertension, unspecified; E11.22 Type 2 diabetes mellitus with diabetic chronic kidney disease; E66.01 Morbid (severe) obesity due to excess calories; I49.5 Sick sinus syndrome; E78.5 Hyperlipidemia, unspecified; E87.5 Hyperkalemia; Z79.82 Long term (current) use of aspirin; Z79.899 Other long term (current) drug therapy; Z95.0 Presence of cardiac pacemaker; Z79.84 Long term (current) use of oral hypoglycemic drugs
CPT/HCPCS: 31500; 36415; 36416; 36430; 36556; 36600; 51702; 70450; 71045; 74176; 76705; 80053; 80202; 81001; 82140; 82274; 82550; 82570; 82728; 82805; 83540; 83550; 83605; 83735; 83880; 84100; 84145; 84155; 84156; 84165; 84300; 84439; 84443; 84484; 84540; 85025; 85049; 85300; 85362; 85379; 85384; 85610; 85730; 86704; 86850; 86900; 86901; 87040; 87070; 87205; 90935; 93005; 93010; 93306; 94002; 94003; 94660; 96365; 96366; 96367; 96368; 96375; 96376; C9113; G0257; J0171; J0282; J0612; J0613; J0692; J1250; J1644; J1720; J1815; J3010; J3370; J3370-JW; J3475; J3480; J3490; J7070; J7999; P9016; P9047; P9059; Q4081